=== PATIENT | female | born 1940 | race Caucasian/White ===

== ENCOUNTER 2022-07-01 18:16 | Inpatient (IN) ==
[2022-07-01] MEDS ORDERED: Cefepime 1 GM in Dextrose 1 GM/50 ML BAG IV ONE (18:31)
[2022-07-01] MEDS ORDERED: Vancomycin 1,000 MG in NS 0.9% 250 ml 250 ML IVPB ONE (18:31)
[2022-07-01 18:37] LABS: PO2 Arterial 278 mmHg (80-100)
[2022-07-01 18:38] LABS: ABS Eosinophils 0.1 10^3/ul (0-0.6); ABS Lymphocytes 0.6 10^3/ul (1.0-4.8); ABS Monocytes 0.6 10^3/ul (0-0.8); ABS Neutrophils 3.6 10^3/ul (1.5-7.7); Eosinophil % 2.3 %; Hematocrit 25 % (35-47); Hemoglobin 7.3 g/dL (12.0-16.0); Lymphocyte % 12.1 %; Mean Corpuscular HGB Conc 29 g/dL (31-36); Mean Corpuscular Hemoglobin 27 pg (27-31); Mean Corpuscular Volume 92 fL (80-97); Mean Platelet Volume 9.5 fL (7.4-10.4); Nucleated Red Blood Cells % 0.1; Platelet Count 153 10^3/uL (150-450); Red Blood Count 2.72 10^6 /uL (3.70-4.87); Red Cell Distribution Width 19 % (10-15); White Blood Count 4.9 10^3/uL (3.5-10.8)
[2022-07-01 18:39] LABS: PCO2 Arterial 90 mmHg (35-45)
[2022-07-01 18:43] LABS: INR 1.63 (0.88-1.18)
[2022-07-01 18:59] LABS: High Sens Troponin Baseline 71 pg/mL (<15)
[2022-07-01 19:07] LABS: ALT 8 U/L (7-52); Albumin 3.8 g/dL (3.2-5.2); Albumin/Globulin Ratio 1.5 (1-3); Alkaline Phosphatase 49 U/L (35-149); Blood Urea Nitrogen 29 mg/dL (6-24); Calcium 9.2 mg/dL (8.6-10.3); Chloride 100 mmol/L (101-111); Creatinine, Serum 1.47 mg/dL (0.51-0.95); Globulin 2.6 g/dL (2-4); Glucose 130 mg/dL (70-100); Lipase 23 U/L (11.0-82.0); Magnesium 2.4 mg/dL (1.9-2.7); Sodium 141 mmol/L (135-145); Total Protein 6.4 g/dL (6.4-8.9)
[2022-07-01] MEDS ORDERED: Furosemide 40 mg/4 ml IV VIAL IV ONE (19:16)
[2022-07-01 19:17] LABS: CO2 Carbon Dioxide 44 mmol/L (22-32)
[2022-07-01 19:38] LABS: AST 18 U/L (13-39); Phosphorus 4.2 mg/dL (2.5-5.0); Potassium 4.5 mmol/L (3.5-5.0)
[2022-07-01 20:01] LABS: High Sensitivity Troponin 1 Hr 64 pg/mL (<15)
[2022-07-01] MEDS ORDERED: Albuterol/Ipratropium NEB.SOL (2.5/0.5 MG) 3 ML NEB.SOLN INH ONE (20:38)
[2022-07-01 20:39] LABS: PO2 Arterial 382 mmHg (80-100)
[2022-07-01 20:44] LABS: PCO2 Arterial 89 mmHg (35-45)
[2022-07-01 21:25] LABS: Total Iron Binding Capacity 454 mcg/dL (250-450); Transferrin 324 mg/dL (203-362)
[2022-07-01 21:51] LABS: Folate 9.06 ng/mL (5.90-24.80)
[2022-07-01 21:52] LABS: Vitamin B12 413 pg/mL (180-914)
[2022-07-01 22:03] LABS: % Iron Saturation 7 % (15-55); Iron 33 ug/dL (50-212); Unsaturated Iron Binding 421 ug/dL
[2022-07-01] MEDS: methylPREDNISolone SOD SUCC 40 mg/ml 1 ml VIAL IV SCH (22:40)
[2022-07-01] MEDS: cefTRIAXone 1 gm/50 mL D5W 1 GM/50 ML BAG IV SCH (22:56)
[2022-07-01] MEDS ORDERED: Metoprolol Tartrate 5 mg VIAL 5 ml VIAL (1 mg/ml) IV ONE (23:09)
[2022-07-02] MEDS ORDERED: OLANZapine IM (NF) 10 MG VIAL IM ONE ×3 (02:52→02:58)
[2022-07-02 04:21] LABS: ABS Lymphocytes 0.3 10^3/ul (1.0-4.8); ABS Monocytes 0.1 10^3/ul (0-0.8); Hematocrit 22 % (35-47); Hemoglobin 6.5 g/dL (12.0-16.0); Lymphocyte % 4.8 %; Mean Corpuscular HGB Conc 29 g/dL (31-36); Mean Corpuscular Hemoglobin 26 pg (27-31); Mean Corpuscular Volume 91 fL (80-97); Mean Platelet Volume 9.6 fL (7.4-10.4); Nucleated Red Blood Cells % 0.1; Platelet Count 135 10^3/uL (150-450); Red Blood Count 2.47 10^6 /uL (3.70-4.87); Red Cell Distribution Width 18 % (10-15); White Blood Count 5.4 10^3/uL (3.5-10.8)
[2022-07-02 05:03] LABS: Albumin 3.6 g/dL (3.2-5.2); Albumin/Globulin Ratio 1.4 (1-3); Calcium 9.1 mg/dL (8.6-10.3); Creatinine, Serum 1.41 mg/dL (0.51-0.95); Globulin 2.5 g/dL (2-4); Magnesium 2.2 mg/dL (1.9-2.7); Potassium 4.2 mmol/L (3.5-5.0); Total Bilirubin 0.6 mg/dL (0.2-1.0); Total Protein 6.1 g/dL (6.4-8.9); eGFR CKD-EPI 36.8 (>60)
[2022-07-02] MEDS ORDERED: Albuterol/Ipratropium NEB.SOL (2.5/0.5 MG) 3 ML NEB.SOLN INH PRN (05:18)
[2022-07-02 05:24] LABS: PCO2 Arterial 65 mmHg (35-45)
[2022-07-02 05:28] LABS: PO2 Arterial 58 mmHg (80-100)
[2022-07-02] MEDS: FLUTICAS/UMECLI/VILANT 200-62.5-25 MDI (NF) INH SCH (07:07)
[2022-07-02] MEDS: methylPREDNISolone SOD SUCC 40 mg/ml 1 ml VIAL IV SCH ×2 (08:41→22:06)
[2022-07-02] MEDS: DOXYcycline 100 MG in NS 0.9% 250 ml 250 ML IVPB SCH (11:15)
[2022-07-02] MEDS: cefTRIAXone 1 gm/50 mL D5W 1 GM/50 ML BAG IV SCH (22:06)
[2022-07-03] MEDS: DOXYcycline 100 MG in NS 0.9% 250 ml 250 ML IVPB SCH ×3 (01:07→23:24)
[2022-07-03 05:53] LABS: ABS Lymphocytes 0.3 10^3/ul (1.0-4.8); ABS Monocytes 0.3 10^3/ul (0-0.8); ABS Neutrophils 5.6 10^3/ul (1.5-7.7); Hematocrit 23 % (35-47); Lymphocyte % 5.3 %; Mean Corpuscular HGB Conc 31 g/dL (31-36); Mean Corpuscular Hemoglobin 27 pg (27-31); Mean Corpuscular Volume 88 fL (80-97); Mean Platelet Volume 9.4 fL (7.4-10.4); Platelet Count 134 10^3/uL (150-450); Red Blood Count 2.59 10^6 /uL (3.70-4.87); Red Cell Distribution Width 19 % (10-15); White Blood Count 6.2 10^3/uL (3.5-10.8)
[2022-07-03 06:17] LABS: ALT 6 U/L (7-52); AST 15 U/L (13-39); Albumin 3.4 g/dL (3.2-5.2); Albumin/Globulin Ratio 1.5 (1-3); Alkaline Phosphatase 40 U/L (35-149); Blood Urea Nitrogen 31 mg/dL (6-24); Calcium 8.6 mg/dL (8.6-10.3); Chloride 98 mmol/L (101-111); Creatinine, Serum 1.16 mg/dL (0.51-0.95); Globulin 2.3 g/dL (2-4); Glucose 139 mg/dL (70-100); Phosphorus 3.2 mg/dL (2.5-5.0); Potassium 4.1 mmol/L (3.5-5.0); Sodium 143 mmol/L (135-145); Total Protein 5.7 g/dL (6.4-8.9); eGFR CKD-EPI 46.5 (>60)
[2022-07-03 06:23] LABS: CO2 Carbon Dioxide 45 mmol/L (22-32)
[2022-07-03] MEDS: FLUTICAS/UMECLI/VILANT 200-62.5-25 MDI (NF) INH SCH (07:36)
[2022-07-03] MEDS: methylPREDNISolone SOD SUCC 40 mg/ml 1 ml VIAL IV SCH (09:51)
[2022-07-03] MEDS ORDERED: Ferric Gluconate IV 250 MG in NS 0.9% 250 ml 200 ML IVPB ONE (13:40)
[2022-07-03] MEDS ORDERED: Morphine 2 MG/ML SYRINGE IV PRN (15:21)
[2022-07-03] MEDS: cefTRIAXone 1 gm/50 mL D5W 1 GM/50 ML BAG IV SCH (22:31)
[2022-07-03] MEDS: Polyethylene Glycol 3350 17 GM PACKET PO SCH (22:41)
[2022-07-04 07:03] LABS: ABS Lymphocytes 0.4 10^3/ul (1.0-4.8); ABS Monocytes 0.7 10^3/ul (0-0.8); ABS Neutrophils 6.1 10^3/ul (1.5-7.7); Hematocrit 26 % (35-47); Hemoglobin 7.7 g/dL (12.0-16.0); Lymphocyte % 5.7 %; Mean Corpuscular HGB Conc 30 g/dL (31-36); Mean Corpuscular Hemoglobin 27 pg (27-31); Mean Corpuscular Volume 89 fL (80-97); Mean Platelet Volume 9.3 fL (7.4-10.4); Platelet Count 162 10^3/uL (150-450); Red Blood Count 2.89 10^6 /uL (3.70-4.87); Red Cell Distribution Width 19 % (10-15); White Blood Count 7.2 10^3/uL (3.5-10.8)
[2022-07-04] MEDS: FLUTICAS/UMECLI/VILANT 200-62.5-25 MDI (NF) INH SCH (07:15)
[2022-07-04 07:43] LABS: Albumin 3.4 g/dL (3.2-5.2); Albumin/Globulin Ratio 1.4 (1-3); Calcium 8.7 mg/dL (8.6-10.3); Creatinine, Serum 1.11 mg/dL (0.51-0.95); Globulin 2.4 g/dL (2-4); Phosphorus 1.7 mg/dL (2.5-5.0); Potassium 4.2 mmol/L (3.5-5.0); Total Bilirubin 0.3 mg/dL (0.2-1.0); Total Protein 5.8 g/dL (6.4-8.9)
[2022-07-04] MEDS: Polyethylene Glycol 3350 17 GM PACKET PO SCH (10:19)
[2022-07-04] MEDS: DOXYcycline 100 MG in NS 0.9% 250 ml 250 ML IVPB SCH (10:21)
[2022-07-04 11:31] VITALS: BP 98/56
[2022-07-04 13:25] LABS: Rapid COVID-19 Molecular Undetected (Undetected)
== END 2022-07-04 14:40 | DRG 291 ==
LOC: ED 18:16 → ICU 20:20 → EDHOLD 20:46 → SUATTDRO 20:46 → ICU 22:07 → MEDTELE 07-02 10:18
PROVIDERS: ADMIT Internal Medicine Critical Care Medicine; ATTEND Internal Medicine